=== PATIENT | female | born 1970 | race Caucasian/White ===

== ENCOUNTER 2024-01-09 08:43 | Emergency (ER) | payer BC ==
[~2024-01-09] VITALS: Ht 180.3 cm; Wt 86.8 kg
[2024-01-09 10:26] VITALS: BP 136/59; TEMP 98.2; O2SAT 98
[2024-01-09] MEDS ORDERED: META1TAB22 PO (11:06)
[2024-01-09] MEDS ORDERED: CIPR500T39 PO (11:07)
== END 2024-01-09 11:24 | disposition home or self-care (01) ==
LOC: M ED 08:43
DX: N39.0 Urinary tract infection, site not specified (principal); Z88.2 Allergy status to sulfonamides; Z88.8 Allergy status to other drugs, medicaments and biological substances; Z79.2 Long term (current) use of antibiotics; Z79.899 Other long term (current) drug therapy